=== PATIENT | female | born 1985 | race Native Hawaiian/Other Pacific Islander ===

== ENCOUNTER 2017-06-30 18:10 | Emergency (ER) | payer SELFPAY ==
[2017-06-30 18:28] VITALS: BMI 28.8
[2017-06-30 18:31] VITALS: O2SAT 100
[2017-06-30 20:32] LABS: BASO % 0.6 % (0.0-2.0); EOS # 0.4 K/uL (0.0-0.7); EOS % 5.4 % (0.0-4.0); HEMOGLOBIN 13.1 g/dL (11.0-16.0); LYMPH # 2.2 K/uL (1.0-4.3); LYMPH % 29.8 % (20.0-40.0); MEAN CELL VOLUME 87.1 fL (81.0-99.0); MEAN CORPUSCULAR HEMOGLOBIN 29.3 pg (27.0-31.0); MEAN CORPUSCULAR HGB CONC 33.7 g/dL (33.0-37.0); MEAN PLATELET VOLUME 9.9 fL (7.2-11.7); MONO # 0.5 K/uL (0.0-0.8); MONO % 6.2 % (0.0-10.0); NEUT # 4.3 K/uL (1.8-7.0); RBC 4.47 Mil/uL (3.80-5.20); RED CELL DISTRIBUTION WIDTH 14.7 % (11.5-14.5); WHITE BLOOD COUNT 7.3 K/uL (4.8-10.8)
[2017-06-30 20:36] LABS: HCG,QUALITATIVE URINE NEGATIVE (NEGATIVE)
[2017-06-30 20:37] LABS: SQUAMOUS EPITHIAL 6 /hpf (0-5); URINE BACTERIA RARE (<OCC); URINE BILIRUBIN NEGATIVE (NEGATIVE); URINE BLOOD 3+ (NEGATIVE); URINE CLARITY Hazy (Clear); URINE COLOR Yellow (YELLOW); URINE GLUCOSE (UA) NORMAL (Normal); URINE LEUKOCYTE ESTERASE NEG Leu/uL (Negative); URINE NITRATE NEGATIVE (NEGATIVE); URINE PROTEIN NEGATIVE (NEGATIVE); URINE UROBILINOGEN NORMAL mg/dL (0.2-1.0)
[2017-06-30 20:44] LABS: ALB/GLOB RATIO 1.3 (1.0-2.1); ALBUMIN 4.2 g/dL (3.5-5.0); ALT/SGPT 31 U/L (9-52); AST/SGOT 19 U/L (14-36); BLOOD UREA NITROGEN 8 mg/dL (7-17); CALCIUM 9.4 mg/dl (8.6-10.4); GFR AFRICAN-AMERICAN > 60; GFR NON-AFRICAN AMERICAN > 60
[2017-06-30 20:55] LABS: B-TYPE NATRIURETIC PEPTIDE 45.6 pg/mL (0-450); PROTHROMBIN TIME 11.4 SECONDS (9.7-12.2)
[2017-06-30] MEDS ORDERED: Iodixanol 320 MG/ML 100 ML BOTTLE IV ONE (21:21)
[2017-06-30 22:58] VITALS: BP 125/79; PULSE 80; RESP 20; TEMP 98.5
--- NOTE | 2017-06-30 22:58 | CT ---
EXAM: CT Angiography Chest With Intravenous Contrast CLINICAL HISTORY: 32 years old, female; Signs and symptoms; Shortness of breath; Additional info: SOB. R/O pe TECHNIQUE: Axial computed tomographic angiography images of the chest with intravenous contrast using pulmonary embolism protocol. All CT scans at this facility use one or more dose reduction techniques, viz.: automated exposure control; ma/kV adjustment per patient size (including targeted exams where dose is matched to indication; i.e. head); or iterative reconstruction technique. MIP reconstructed images were created and reviewed. Coronal and sagittal reformatted images were created and reviewed. CONTRAST: 100 mL of visipaque 320 administered intravenously. COMPARISON: No relevant prior studies available. FINDINGS: Pulmonary arteries: No pulmonary embolism. Aorta: No aneurysm. No dissection. Lungs: No consolidation. 0.4 cm RIGHT lower lobe nodule. Pleural space: No significant effusion. No pneumothorax. Heart: No cardiomegaly. No significant pericardial effusion. Bones/joints: No acute fracture. Soft tissues: Unremarkable. Lymph nodes: No pathologically enlarged lymph nodes. IMPRESSION: 1. No CT evidence of pulmonary embolism. 2. Pulmonary nodule, nonspecific. Followup as clinically warranted.
--- NOTE | 2017-06-30 23:19 | C.PDOC ---
Time Seen by Provider: 06/30/17 19:57 Chief Complaint (Nursing): Shortness Of Breath History Per: Patient Onset/Duration Of Symptoms: Days (about 1 week), Waxing/Waning Current Symptoms Are (Timing): Still Present Quality: Tightness Current Respiratory Medications: None Severity: Moderate Associated Symptoms: Heart Racing, Anxiety Additional History Per: Prior Records Past Medical History Reviewed: Historical Data, Nursing Documentation, Vital Signs Vital Signs: Last Vital Signs Temp 98.5 F 06/30/17 22:57 Pulse 80 06/30/17 22:57 Resp 20 06/30/17 22:57 BP 125/79 06/30/17 22:57 Pulse Ox 100 06/30/17 22:57 - Medical History PMH: No Chronic Diseases Surgical History: Cholecystectomy Family History: States: Unknown Family Hx - Social History Hx Tobacco Use: No Hx Alcohol Use: No Hx Substance Use: No - Immunization History Hx Tetanus Toxoid Vaccination: No Hx Influenza Vaccination: No Hx Pneumococcal Vaccination: No Review Of Systems Except As Marked, All Systems Reviewed And Found Negative. Constitutional: Negative for: Fever Cardiovascular: Positive for: Palpitations (?) Respiratory: Positive for: Shortness of Breath. Negative for: Hemoptysis Gastrointestinal: Negative for: Vomiting, Abdominal Pain Musculoskeletal: Negative for: Neck Pain, Leg Pain Skin: Negative for: Rash Neurological: Negative for: Weakness, Numbness Physical Exam - Physical Exam Appears: Non-toxic, No Acute Distress Skin: Normal Color, Warm, Dry, No Rash Head: Atraumatic, Normacephalic Eye(s): bilateral: Normal Inspection, PERRL, EOMI Neck: Normal ROM, Supple Chest: Symmetrical, No Deformity, No Tenderness, No Subcutaneous Emphysema Cardiovascular: Rhythm Regular Respiratory: Normal Breath Sounds, No Accessory Muscle Use Gastrointestinal/Abdominal: Soft, No Tenderness Back: No CVA Tenderness Extremity: Normal ROM, No Pedal Edema, No Calf Tenderness Neurological/Psych: Oriented x3, Normal Speech, Normal Motor, Normal Sensation ED Course And Treatment - Laboratory Results Result Diagrams: 06/30/17 20:28 06/30/17 20:28 Lab Interpretation: No Acute Changes Urine POC: Negative ECG: Interpreted By Me, Viewed By Me ECG Rhythm: Sinus Rhythm, Nonspecific Changes ECG Interpretation: No Acute Changes Rate From EC O2 Sat by Pulse Oximetry: 100 Pulse Ox Interpretation: Normal - Radiology CXR: Interpreted by Me, Viewed By Me CXR Interpretation: Yes: No Acute Disease - CT Scan/US CTA of chest Other Rad Studies (CT/US): Read By Radiologist, Radiology Report Reviewed CT/US Interpretation: IMPRESSION: 1. No CT evidence of pulmonary embolism. 2. Pulmonary nodule, nonspecific. Followup as clinically warranted. Disposition Counseled Patient/Family Regarding: Studies Performed, Diagnosis, Need For Followup, Rx Given - Disposition Referrals: [facility] at [facility] [Outside] Disposition: HOME/ ROUTINE Disposition Time: 23:19 Condition: STABLE Additional Instructions: Follow up with a primary doctor or in the clinic for further evaluation and treatment. Return to the ER if you develop dizziness, pass out, chest pain, worsening of symptoms or if you have any other concerns. Prescriptions: Famotidine [Pepcid] 20 mg PO BID #30 tab Instructions: Pulmonary Nodule, Shortness of Breath (Dyspnea) (DC) Forms: General Discharge Instructions - Clinical Impression Clinical Impression: Pulmonary nodule, right, Dyspnea
--- NOTE | 2017-07-01 09:23 | RAD ---
HISTORY: Shortness of breath. COMPARISON: No prior. TECHNIQUE: Chest PA and lateral FINDINGS: LUNGS: No active pulmonary disease. PLEURA: No significant pleural effusion identified. No pneumothorax apparent. CARDIOVASCULAR: Normal. OSSEOUS STRUCTURES: No significant abnormalities. VISUALIZED UPPER ABDOMEN: Normal. OTHER FINDINGS: None. IMPRESSION: No acute infiltrates.
--- NOTE | 2017-07-04 16:52 | CARD ---
APPROVED REPORT EKG Measurement Heart [id number] FL 128P3 [id number] <Conclusion> Normal sinus rhythm with sinus arrhythmia Normal ECG
== END 2017-06-30 23:28 | disposition home or self-care (01) ==
LOC: C.ER 18:10
DX: R91.1 Solitary pulmonary nodule (principal); R06.00 Dyspnea, unspecified
CPT/HCPCS: 71046; 71275; 80053; 81001; 83880; 84484; 84703; 85025; 85378; 85610; 85730; 93005; 99285; Q9967

== ENCOUNTER 2017-07-09 14:36 | Emergency (ER) | payer OTHER ==
[2017-07-09 14:47] VITALS: BMI 25.8
--- NOTE | 2017-07-09 15:33 | C.PDOC ---
History Of Present Illness 32 year old female presents to ED with complaints of midsternal chest pain today , she points to epigastric region. When asked further she states it starts in epigastric area and radiates into chest. She reports feeling burning sensation and pain is worse after eating. She also admits to feeling gassy and has been belching. She states she was seen in ED last week and was given Pepcid which she states has helped but pain worse after eating. Denies any SOB, fever, nausea , vomiting. Time Seen by Provider: 07/09/17 15:20 Chief Complaint (Nursing): Chest Pain History Per: Patient History/Exam Limitations: no limitations Onset/Duration Of Symptoms: Days Current Symptoms Are (Timing): Still Present Past Medical History Reviewed: Historical Data, Nursing Documentation, Vital Signs Vital Signs: Last Vital Signs Temp 98.5 F 07/09/17 16:27 Pulse 76 07/09/17 16:27 Resp 18 07/09/17 16:27 BP 143/82 07/09/17 16:27 Pulse Ox 98 07/09/17 19:36 - Medical History PMH: No Chronic Diseases Surgical History: Cholecystectomy Family History: States: No Known Family Hx - Social History Hx Tobacco Use: No Hx Alcohol Use: No Hx Substance Use: No - Immunization History Hx Tetanus Toxoid Vaccination: No Hx Influenza Vaccination: No Hx Pneumococcal Vaccination: No Review Of Systems Constitutional: Negative for: Fever, Chills Cardiovascular: Positive for: Chest Pain Respiratory: Negative for: Shortness of Breath Gastrointestinal: Positive for: Abdominal Pain. Negative for: Nausea, Vomiting Physical Exam - Physical Exam Appears: Non-toxic, No Acute Distress Skin: Warm, Dry, No Rash Head: Atraumatic, Normacephalic Eye(s): bilateral: Normal Inspection, EOMI Ear(s): Bilateral: Normal Nose: Normal Oral Mucosa: Moist Neck: Normal ROM, Supple Chest: Symmetrical, No Tenderness, No Ecchymosis Cardiovascular: Rhythm Regular, No Murmur Respiratory: Normal Breath Sounds, No Rales, No Rhonchi, No Wheezing Gastrointestinal/Abdominal: Soft, No Tenderness, No Distention, No Guarding, No Rebound Extremity: Bilateral: Atraumatic Neurological/Psych: Oriented x3, Normal Speech ED Course And Treatment O2 Sat by Pulse Oximetry: 98 (RA) Pulse Ox Interpretation: Normal Medical Decision Making Medical Decision Making: Patient with epigastric pain that radiates into chest. Patient seen in ED last week 06/30/17 for chest pain and dyspnea. Patient had through workup including labs, EKG, CXR and CTA, showing no PE. Patient has no chest pain currently. Vital signs normal. No tenderness or abnormal exam. Symptoms clinically related to GI problem, gastritis or GERD. Advise patient on dietary changes and to follow up in the clinic and to continue with Pepcid daily. Disposition Counseled Patient/Family Regarding: Diagnosis, Need For Followup - Disposition Referrals: [facility] [Outside] [facility] [Outside] Disposition: HOME/ ROUTINE Disposition Time: 16:15 Condition: STABLE Additional Instructions: Please continue to take Pepcid daily Try dietary changes and keep journal of what foods irritate or upset symptoms more Follow up in the clinic for further evaluation. Instructions: Gastritis Forms: [employer] (Khmer) - POA Present On Arrival: None - Clinical Impression Clinical Impression: Epigastric abdominal pain, Gastritis - PA / GAUGE AND INSTRUMENT INSPECTOR / Resident Statement MD/DO has reviewed & agrees with the documentation as recorded. - Scribe Statement The provider has reviewed the documentation as recorded by the Jezibmerari Rizvi All medical record entries made by the Remington were at my direction and personally dictated by me. I have reviewed the chart and agree that the record accurately reflects my personal performance of the history, physical exam, medical decision making, and the department course for this patient. I have also personally directed, reviewed, and agree with the discharge instructions and disposition.
[2017-07-09 16:28] VITALS: BP 143/82; PULSE 76; RESP 18; TEMP 98.5
[2017-07-09 18:49] VITALS: O2SAT 98
--- NOTE | 2017-07-10 07:55 | CARD ---
APPROVED REPORT EKG Measurement Heart [id number] MD 148P42 [id number] <Conclusion> Normal sinus rhythm Normal ECG
== END 2017-07-09 16:28 | disposition home or self-care (01) ==
LOC: C.ER 14:36
DX: K29.70 Gastritis, unspecified, without bleeding (principal)

== ENCOUNTER 2017-08-27 09:37 | Emergency (ER) | payer OTHER ==
[2017-08-27 09:37] VITALS: BMI 30.9
[2017-08-27 10:02] VITALS: O2SAT 100
--- NOTE | 2017-08-27 11:07 | C.PDOC ---
History Of Present Illness 32 year old female presents to the ED c/o left lower leg pain for the past 2 days. Patient also reports having an "electrical wave" sensation in her chest as well. Patient reports her chest discomfort worsens with movement. Patient denies injury, fall, trauma, recent travel, prior Hx of DVT/PE, abdominal pain. Time Seen by Provider: 08/27/17 10:53 Chief Complaint (Nursing): Lower Extremity Problem/Injury History Per: Patient History/Exam Limitations: no limitations Onset/Duration Of Symptoms: Days Current Symptoms Are (Timing): Still Present Recent travel outside of the [place]: No Additional History Per: Patient - Knee Description Of Injury: Other Alleviating Factor(s): denies: OTC Pain Medication Past Medical History Reviewed: Historical Data, Nursing Documentation, Vital Signs Vital Signs: Last Vital Signs Temp 98.5 F 08/27/17 13:07 Pulse 62 08/27/17 13:07 Resp 16 08/27/17 13:07 BP 106/72 08/27/17 13:07 Pulse Ox 100 08/27/17 13:12 - Medical History PMH: No Chronic Diseases Surgical History: Cholecystectomy Family History: States: Unknown Family Hx - Social History Hx Tobacco Use: No Hx Alcohol Use: No Hx Substance Use: No - Immunization History Hx Tetanus Toxoid Vaccination: No Hx Influenza Vaccination: No Hx Pneumococcal Vaccination: No Review Of Systems Except As Marked, All Systems Reviewed And Found Negative. Cardiovascular: Positive for: Chest Pain Musculoskeletal: Positive for: Leg Pain Physical Exam - Physical Exam Appears: Non-toxic, No Acute Distress Skin: Normal Color, Warm, Dry, No Rash Head: Atraumatic, Normacephalic Eye(s): bilateral: Normal Inspection Chest: Symmetrical, No Tenderness Cardiovascular: Rhythm Regular, No Murmur Extremity: Normal ROM, Tenderness (left posterior calf and popliteal area), Capillary Refill (< 2 seconds), No Swelling Pulses: Left Dorsalis Pedis: Normal, Right Dorsalis Pedis: Normal Neurological/Psych: Oriented x3, Normal Motor, Normal Sensation Gait: Steady ED Course And Treatment - Laboratory Results Result Diagrams: 08/27/17 12:19 08/27/17 12:19 ECG: Interpreted By Me, Viewed By Me ECG Rhythm: Sinus Rhythm, Nonspecific Changes (T wave changes) Interpretation Of ECG: Normal axis, normal intervals Rate From EC (BPM) O2 Sat by Pulse Oximetry: 100 (ON RA) Pulse Ox Interpretation: Normal Medical Decision Making Medical Decision Making: Impression: left lower pain Plan: * Labs * CXR * Toradol 30 mg IVP * UA * venous duplex Venous duplex was negative labs were normal. Patient was diagnosed with atypical chest pain and leg pain. Patient will be D/C home and advised to follow up with PMD in 2 days. Disposition Counseled Patient/Family Regarding: Studies Performed, Diagnosis, Need For Followup, Rx Given - Disposition Referrals: [facility] [Outside] Disposition: HOME/ ROUTINE Disposition Time: 13:09 Condition: STABLE Additional Instructions: follow up with your doctor in 2 days call to make an appointment continue your medications at home return to ER if symptoms worsens or progress Prescriptions: Naproxen [Naprosyn] 500 mg PO BID PRN #16 tab PRN Reason: Pain, Moderate (4-7) Instructions: Chest Pain, Muscle and Bone Pain (DC) Forms: [facility] (Faroese), General Discharge Instructions - Clinical Impression Clinical Impression: Atypical chest pain, Leg pain - Scribe Statement The provider has reviewed the documentation as recorded by the Scribe Pedro Lerma All medical record entries made by the Scribe were at my direction and personally dictated by me. I have reviewed the chart and agree that the record accurately reflects my personal performance of the history, physical exam, medical decision making, and the department course for this patient. I have also personally directed, reviewed, and agree with the discharge instructions and disposition.
[2017-08-27 12:24] LABS: BASO # 0.1 K/uL (0.0-0.2); BASO % 1.4 % (0.0-2.0); EOS # 0.3 K/uL (0.0-0.7); HEMOGLOBIN 13.5 g/dL (11.0-16.0); LYMPH # 1.5 K/uL (1.0-4.3); LYMPH % 21.9 % (20.0-40.0); MEAN CELL VOLUME 86.7 fL (81.0-99.0); MEAN CORPUSCULAR HEMOGLOBIN 29.2 pg (27.0-31.0); MEAN CORPUSCULAR HGB CONC 33.7 g/dL (33.0-37.0); MEAN PLATELET VOLUME 9.8 fL (7.2-11.7); MONO # 0.3 K/uL (0.0-0.8); MONO % 4.7 % (0.0-10.0); NEUT # 4.5 K/uL (1.8-7.0); RBC 4.61 Mil/uL (3.80-5.20); RED CELL DISTRIBUTION WIDTH 14.3 % (11.5-14.5); WHITE BLOOD COUNT 6.6 K/uL (4.8-10.8)
[2017-08-27 12:51] LABS: ALB/GLOB RATIO 1.2 (1.0-2.1); ALBUMIN 4.2 g/dL (3.5-5.0); ALT/SGPT 20 U/L (9-52); AST/SGOT 27 U/L (14-36); BLOOD UREA NITROGEN 7 mg/dL (7-17); GFR AFRICAN-AMERICAN > 60; GFR NON-AFRICAN AMERICAN > 60
[2017-08-27 13:07] VITALS: BP 106/72; PULSE 62; RESP 16; TEMP 98.5
--- NOTE | 2017-08-27 14:44 | RAD ---
HISTORY: SOB COMPARISON: 06/30/2017 TECHNIQUE: Chest PA and lateral FINDINGS: LUNGS: No active pulmonary disease. PLEURA: No significant pleural effusion identified. No pneumothorax apparent. CARDIOVASCULAR: Normal. OSSEOUS STRUCTURES: No significant abnormalities. VISUALIZED UPPER ABDOMEN: Normal. OTHER FINDINGS: None. IMPRESSION: No active disease. No significant interval change compared to the prior examination(s).
--- NOTE | 2017-08-28 09:08 | VASCLAB ---
PROCEDURE: Left Lower Extremity Venous Duplex Exam. HISTORY: left leg pain PRIORS: None. TECHNIQUE: Left common femoral, femoral, popliteal and posterior tibial, peroneal and great saphenous veins were evaluated. Flow was assessed with color Doppler, compressibility, assessment of phasic flow and augmentation response. Report prepared by GEOVANI Mistry, RVT FINDINGS: LEFT: 1. Common Femoral Vein: 1.1. Compressibility - Fully compressible: Thrombus - None : Flow - Phasic: Augmentation -Normal: Reflux - None. 2. Femoral Vein: 2.1. Compressibility - Fully compressible: Thrombus - None: Flow - Phasic: Augmentation -Normal: Reflux - None. 3. Popliteal Vein: 3.1. Compressibility - Fully compressible: Thrombus - None: Flow - Phasic: Augmentation -Normal: Reflux - None. 4. Posterior Tibial Vein: 4.1. Compressibility - Fully compressible: Thrombus - None: Flow - Phasic: Augmentation -Normal: Reflux - None. 5. Peroneal Vein: 5.1. Compressibility - Fully compressible: Thrombus - None: Flow - Phasic: Augmentation -Normal: Reflux - Severe. 6. Great Saphenous Vein: 6.1. Compressibility - Fully compressible: Thrombus - None: Flow - Phasic: Augmentation - Normal: Reflux - None. OTHER FINDINGS: IMPRESSION: No evidence of deep or superficial vein thrombosis of the left lower extremity with excellent venous flow. 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 Normal venous flow noted in the right common femoral vein.
--- NOTE | 2017-08-29 12:37 | CARD ---
APPROVED REPORT EKG Measurement Heart [id number] PA 130P8 [id number] <Conclusion> Normal sinus rhythm Normal ECG
== END 2017-08-27 13:35 | disposition home or self-care (01) ==
LOC: C.ER 09:37
DX: R07.89 Other chest pain (principal); M79.605 Pain in left leg
CPT/HCPCS: 71046; 80053; 82550; 84484; 85025; 85378; 93005; 93971; 96374; 99284; J1885

== ENCOUNTER 2018-06-06 20:51 | Emergency (ER) | payer OTHER ==
[2018-06-06 20:51] VITALS: BMI 30.9
[2018-06-06 21:06] VITALS: RESP 20; TEMP 98.2
[2018-06-06] MEDS ORDERED: Sodium Chloride 0.9% 1,000 ML IV ONE (21:27)
--- NOTE | 2018-06-06 21:29 | C.PDOC ---
History Of Present Illness 33 year old female, , presents to the ED c/o headache, vertigo like dizziness associated with nausea, vomiting that started this afternoon. Patient is currently with ÁNGEL 12/27/18. Patient reports that when she stands up or changes position she has "heaviness and vomiting". Patient also states having some abdominal discomfort due to the vomiting. Patient denies fever, chills, nasal congestion, cough, sore throat, weakness, numbness, injury, fall, trauma, vaginal bleeding, vaginal discharge. Time Seen by Provider: 06/06/18 21:09 Chief Complaint (Nursing): Abdominal Pain History Per: Patient History/Exam Limitations: no limitations Onset/Duration Of Symptoms: Hrs Current Symptoms Are (Timing): Still Present Location Of Pain/Discomfort: Suprapubic Radiation Of Pain To:: None Quality Of Discomfort: "Pain" Associated Symptoms: Nausea, Vomiting, Other (dizziness) Recent travel outside of the [place]: No Additional History Per: Patient Abnormal Vaginal Bleeding: No : 2 Para: 1 Past Medical History Reviewed: Historical Data, Nursing Documentation, Vital Signs Vital Signs: Last Vital Signs Temp 98.2 F 06/06/18 20:54 Pulse 87 06/06/18 20:54 Resp 20 06/06/18 20:54 BP 134/86 06/06/18 20:54 Pulse Ox 99 06/06/18 20:54 - Medical History PMH: No Chronic Diseases Surgical History: Cholecystectomy Family History: States: Unknown Family Hx - Social History Hx Tobacco Use: No Hx Alcohol Use: No Hx Substance Use: No - Immunization History Hx Tetanus Toxoid Vaccination: No Hx Influenza Vaccination: No Hx Pneumococcal Vaccination: No Review Of Systems Constitutional: Negative for: Fever, Chills Eyes: Negative for: Vision Change ENT: Negative for: Nose Discharge, Nose Congestion, Throat Pain Cardiovascular: Negative for: Chest Pain Respiratory: Negative for: Cough Gastrointestinal: Positive for: Nausea, Vomiting, Abdominal Pain Genitourinary: Negative for: Dysuria, Vaginal Discharge, Vaginal Bleeding Skin: Negative for: Rash Neurological: Positive for: Headache, Dizziness. Negative for: Weakness, Numbness Physical Exam - Physical Exam Appears: Non-toxic, No Acute Distress Skin: Normal Color, Warm, Dry Head: Atraumatic, Normacephalic Eye(s): bilateral: Normal Inspection, PERRL, EOMI, Other (horizontal nystagmus induced vertigo) Oral Mucosa: Moist Neck: Normal ROM, Supple Chest: Symmetrical Cardiovascular: Rhythm Regular Respiratory: Normal Breath Sounds, No Rales, No Rhonchi, No Wheezing Gastrointestinal/Abdominal: Soft, No Tenderness, No Guarding, No Rebound Extremity: Normal ROM, No Tenderness, No Swelling Neurological/Psych: Oriented x3, Normal Speech, Normal Cognition, Other (inducible vertigo with positional change) Gait: Steady ED Course And Treatment O2 Sat by Pulse Oximetry: 99 (ON RA) Pulse Ox Interpretation: Normal - CT Scan/US Pelvic US Other Rad Studies (CT/US): Read By Radiologist, Radiology Report Reviewed CT/US Interpretation: EXAM: US Obstetrical, Complete <14 weeks. CLINICAL HISTORY: Abd pain, r/o ectopic. TECHNIQUE: Transvaginal and transabdominal imaging of the maternal pelvis and a <14 week gestation with image documentation. COMPARISON: None provided. FINDINGS: GESTATION: A single living IUP estimated to be 10 weeks and 3 days in age +/- 5 days. UTERUS: Unremarkable. No myometrial mass. CERVIX: Closed. Unremarkable. OVARIES: The right ovary is slightly enlarged measuring approximately 3.4 x 2.7 x 3.9 cm in longitudinal, AP and transverse dimensions respectively. The estimated right ovarian volume is 18.1 cm. Good right ovarian perfusion demonstrated. No right ovarian mass identified. The left ovary was not detected. FREE FLUID: No free fluid. SUBCHORIONIC HEMORRHAGE: A tiny 6.4 mm old subchorionic hemorrhage is identified along the lower anterior uterine segment. No evidence of active hemorrhage. IMPRESSION: 1. Single living intrauterine . No acute abnormality. 2. A tiny old subchorionic hemorrhage is identified along the lower anterior uterine segment. 3. Mild right ovarian enlargement. Measurement is given above. The left ovary was not detected. . Electronically signed on Jun 06, 2018 11:33:21 PM EST by: Stefan Purdy M.D., MAGGI Certified By ABR & CBCCT. Fellowship Trained MRI and CT Specialist Progress - Re-Evaluation Re-evaluation Note: 06/06/18 22:43 VOMITING RESOLVED. PS INITIAL REFUSED THE MECLIZINE "BC I THOUGHT THE VOMITING WAS THE PROBLEM". PT ADVISED RISK/BENEFIT, CONCERN FOR POTENTIAL INJURY AND RECURRENT VOMITING IF VERTIGO STILL PERSISTS. AMBUL WO DIFF BUT STILL "FEELING OFF". COON RESOLVED. VSS PT CONCERNED FOR R GROIN/PELVIC PAIN ONSET AFTER MULTIPLE VOMITING THIS AFTERNOON. NO VB. REQUESTING US. ADVISED STUDY WOULD BE FOR VERIFICATION OF FH/RO ECTOPIC 06/07/18 00:05 FEELS BETTER AFTER MECLIZINE. WISHES DC HOME. US +IUP - Data Reviewed Data Reviewed: Lab, Diagnostic imaging Medical Decision Making Medical Decision Making: Plan: * Meclazine 50 mg PO * IV fluids * Tylenol 975 mg PO * Zofran 4 mg IVP Disposition Counseled Patient/Family Regarding: Studies Performed, Diagnosis, Need For Followup, Rx Given - Disposition Referrals: [facility] [Other] Disposition: HOME/ ROUTINE Disposition Time: 00:06 Condition: IMPROVED Additional Instructions: TAKE TYLENOL NEEDED FOR HEADACHE, PAIN. NO OPERATING HEAVY MACHINARY/DRIVING WITH CURRENT CONDITION. Prescriptions: Meclizine [Antivert] 50 mg PO TID PRN #21 tab PRN Reason: Dizziness Ondansetron ODT [Zofran ODT] 4 mg PO TID PRN #12 odt PRN Reason: Nausea/Vomiting Instructions: Vertigo (a Type of Dizziness) (DC) Forms: [employer] (Hungarian), Work Excuse - Clinical Impression Clinical Impression: Abdominal wall pain, Vomiting, Vertigo - Scribe Statement The provider has reviewed the documentation as recorded by the Scribe Pedro Lerma All medical record entries made by the Scribe were at my direction and personally dictated by me. I have reviewed the chart and agree that the record accurately reflects my personal performance of the history, physical exam, medical decision making, and the department course for this patient. I have also personally directed, reviewed, and agree with the discharge instructions and disposition.
[2018-06-07 00:21] VITALS: BP 128/78; PULSE 74; O2SAT 98
--- NOTE | 2018-06-07 10:02 | US ---
Pelvic ultrasound HISTORY: . Pain. Comparison: None available. Technique: Real-time sonography was performed through the pelvis utilizing transabdominal techniques. Findings: Uterus: 14.3 x 8.3 x 10.3 centimeters. Heterogeneous echotexture. Anteverted. Cervix measures 3.2 centimeters. Intrauterine gestational sac measuring 4.4 centimeters corresponding to a gestational age of 9 weeks and 6 days. Yolk sac measures 3.8 millimeters. Orason-rump length measures 3.9 centimeters corresponding to a gestational age of 10 weeks and 6 days. heart rate of 161 beats minute. Suggestion of a small amount of subchorionic hemorrhage adjacent to the gestational sac measuring 1.4 x 1.1 x 0.6 centimeters. No free fluid in the pelvic cul-de-sac. Right ovary: 3.4 x 2.7 x 3.9 centimeters. Normal flow. Left ovary: Not well visualized. Impression: Intrauterine corresponding to a gestational age of approximately 10 weeks and 6 days by crown-rump length of 3.9 centimeters. heart rate of 161 beats per minute. Suggestion of a small amount of subchorionic hemorrhage adjacent to the gestational sac measuring 1.4 x 1.1 x 0.6 centimeters. Left ovary not well visualized. Limited 1st trimester ultrasound for viability purposes only. Continued interval followup with serial ultrasound, serial HCG levels, and gynecological consultation would be helpful if clinically indicated. A preliminary report was generated at 11:33 p.m. on 06/06/[address] Stefan Purdy from [facility].
== END 2018-06-07 00:19 | disposition home or self-care (01) ==
LOC: C.ER 20:51
DX: O21.9 Vomiting of pregnancy, unspecified (principal); Z3A.10 10 weeks gestation of pregnancy; R42 Dizziness and giddiness; R10.9 Unspecified abdominal pain
CPT/HCPCS: 76801; 81025; 84702; 96361; 96374; 99285; J2405; J7030

== ENCOUNTER 2018-06-11 12:56 | Outpatient (CLI) | payer OTHER | END 2018-06-11 12:57 | disposition home or self-care (01) | LOC: C.LAB 12:56 | DX: Z34.91 Encounter for supervision of normal pregnancy, unspecified, first trimester (principal) ==

== ENCOUNTER 2018-08-04 09:47 | Outpatient (CLI) | payer OTHER | END 2018-08-04 09:48 | disposition home or self-care (01) | LOC: C.LAB 09:47 | DX: Z34.82 Encounter for supervision of other normal pregnancy, second trimester (principal) ==